=== PATIENT | male | born 1955 | race Caucasian/White ===

== ENCOUNTER 2016-04-17 12:49 | Inpatient (IN) | payer OTHER ==
[2016-04-17] MEDS ORDERED: NS 1,000 ML IV ONE ×2 (13:14→13:19)
[2016-04-17] MEDS ORDERED: chlordiazePOXIDE 25 MG CAP PO ONE (13:15)
[2016-04-17] MEDS ORDERED: LORazepam 2 MG/ML INJ IVP ONE ×2 (13:15→15:06)
--- NOTE | 2016-04-17 13:15 | EDPHY ---
H & P Time Seen by Provider: 04/17/16 13:00 HPI/ROS: CHIEF COMPLAINT: I got really drunk yesterday HISTORY OF PRESENT ILLNESS: Patient is a 61-year-old male who presents to the emergency department stating that he drinks regularly. He got drunk the night before last and drank into yesterday morning. He subsequently went to the [facility] for detox. He is now feeling unsteady when he walks. He feels as though he is having some mild confusion. He is feeling tremulous and shaky. He states he has had alcohol withdrawal before. He denies chest pain or shortness of breath. Patient has mild nausea with no vomiting or diarrhea. Patient has chronic low back pain. This is unchanged. Patient states he has fallen numerous times over the past couple of weeks. He did strike his head but did not lose consciousness. He has no headache at this time. No weakness or numbness. No focal deficits. REVIEW OF SYSTEMS: My complete review of systems is negative except as mentioned in the HPI. Past Medical/Surgical History: Includes alcoholism, chronic back pain, insomnia Past surgical history: Denies Social history: The patient smokes. He drinks alcohol regularly. He denies drugs Smoking Status: Former smoker Physical Exam: 132/91, went away, 14, 90% on room air, 36.9 GENERAL: No acute distress, alert. HEENT: Eyes normal to inspection, dry mucous membranes. Tongue wag. no visible signs of trauma. NECK: No thyromegaly, no lymphadenopathy, supple. RESPIRATORY: Clear to auscultation bilaterally, no rales, rhonchi or wheezing. Chest wall: No tenderness palpation CVS: Regular rate and rhythm, no rubs, murmurs, or gallops. ABDOMEN: Soft, nontender, nondistended, no organomegaly. BACK: Normal to inspection, no CVA tenderness. Mild bruising on the right posterior chest. No crepitus or step-off. SKIN: Normal color, no rash, warm, dry. No pallor. EXTREMITIES: No pedal edema, no calf tenderness, no Homans sign or cords, no joint swelling. NEURO/PSYCH: Alert and oriented x3, normal mood and affect, normal motor sensory exam. No obvious cranial nerve deficit. Hand tremor Constitutional: Initial Vital Signs Temperature (C) 36.9 C 04/17/16 12:57 Heart Rate 108 H 01/22/17 12:57 Respiratory Rate 14 04/17/16 12:57 Blood Pressure 132/91 H 04/17/16 12:57 O2 Sat (%) 90 L 04/17/16 12:57 O2 Delivery Mode Room Air O2 (L/minute) 2 Allergies/Adverse Reactions: No Known Allergies Allergy (Unverified 04/17/16 12:56) Home Medications: Medication Instructions Recorded Amitriptyline HCl [Elavil 50 mg 50 mg PO HS PRN 04/17/16 (*)] Atorvastatin Calcium [Lipitor 40 40 mg PO DAILY 04/17/16 mg (*)] Lisinopril [Zestril 5 mg (*)] 5 mg PO DAILY 04/17/16 Meloxicam [Mobic 15 mg] 15 mg PO DAILY 04/17/16 predniSONE 20 mg PO DAILY 04/17/16 Medical Decision Making ED Course/Re-evaluation: In the emergency department I discussed possible etiologies with the patient. Answered all his questions. IV was placed. Laboratory studies were ordered. Patient was given a L of normal saline. Given Ativan 1 mg IV for alcohol withdrawal. He was given Librium 25 mg orally for alcohol withdrawal. Because the patient reports that he has fallen multiple times and struck his head and head CT was ordered. The patient has bruising on his posterior chest and his oxygen saturation is 90%. Because of this chest x-ray was ordered. I reviewed the patient's laboratory studies. His CBC showed a normal white count. He is not anemic. However, the patient is noted to be thrombocytopenic with platelets at 52. Previous platelets were 146. Chemistry panel showed a creatinine of 0.5. Glucose 117. 1500: The patient is still is still mildly tremulous. His CIWA score is 4. Of note, I checked the patient on numerous occasions. Head CT: No acute disease noted. Please refer the dictated report by Dr. Jb Velazco. I discussed the result with the patient. On recheck he had no focal neurologic deficit. He still stated he was feeling shaky and off. 1525: The patient's brother arrived. I discussed the findings and presentation with the patient's brother. It is noted the patient does not recognize his brother. This is atypical. Based on the patient's confusion and ongoing symptoms I considered Wernicke encephalopathy. Patient was given thiamine 100 mg IV. The patient will be admitted for further observation for his confusion as well as for his abnormal laboratory studies. I discussed this with the patient and his brother. I answered all their questions. I discussed case with the hospitalist service for admission (Dr. Leslie) 1605: I discussed the chest x-ray with Dr. Velazco. He felt there is a mass/ infiltrate behind the heart. This is noted on the lateral view. Since the patient does not have significant signs of pneumonia he recommends CT imaging. I discussed the finding with Dr. Leslie from the hospitalist service. EKG shows normal sinus rhythm, normal rate, normal axis, prolonged QT. There are no ST or T-wave abnormalities. CT of the chest: Please refer the dictated report by Dr. Valeriano Sultana. The patient does have spiculated left upper lobe mass. This was relayed to Dr. Leslie. Differential Diagnosis: My differential includes but is not limited to alcohol withdrawal, dehydration, electrolyte abnormality, sugar abnormality, subarachnoid hemorrhage, subdural hematoma, epidural hematoma, skull fracture, concussion, pneumonia, rib contusion, rib fracture, hemothorax, pneumothorax Critical Care Time: Patient required 35 minutes of critical care time. This was due to his confusion, alcohol withdrawal, possible Wernicke's encephalopathy, need for frequent rechecks, further history taken from his brother, and consultation with the hospitalist service. - Data Points Laboratory Results: Laboratory Results 04/17/16 13:10 04/17/16 13:10 04/17/16 04/17/16 13:24 13:10 WBC 5.72 10^3/uL (3.80-9.50) RBC 4.10 L 10^6/uL (4.40-6.38) Hgb 14.9 g/dL (13.7-17.5) Hct 43.5 % (40.0-51.0) MCV 106.1 H fL (81.5-99.8) MCH 36.3 H pg (27.9-34.1) MCHC 34.3 g/dL (32.4-36.7) RDW 15.4 H % (11.5-15.2) Plt Count 52 L 10^3/uL (150-400) MPV 11.0 fL (8.7-11.7) Neut % (Auto) 79.7 H % (39.3-74.2) Lymph % (Auto) 12.8 L % (15.0-45.0) [place] % (Auto) 5.8 % (4.5-13.0) Eos % (Auto) 1.2 % (0.6-7.6) Baso % (Auto) 0.3 % (0.3-1.7) Nucleat RBC Rel Count 0.0 % (0.0-0.2) Absolute Neuts (auto) 4.56 10^3/uL (1.70-6.50) Absolute Lymphs (auto) 0.73 L 10^3/uL (1.00-3.00) Absolute Monos (auto) 0.33 10^3/uL (0.30-0.80) Absolute Eos (auto) 0.07 10^3/uL (0.03-0.40) Absolute Basos (auto) 0.02 10^3/uL (0.02-0.10) Absolute Nucleated RBC 0.00 10^3/uL (0-0.01) Immature Gran % 0.2 % (0.0-1.1) Immature Gran # 0.01 10^3/uL (0.00-0.10) PT 12.3 SEC (12.0-15.0) INR 0.92 (0.83-1.16) APTT 24.9 SEC (23.0-38.0) Sodium 138 mEq/L (134-144) Potassium 3.9 mEq/L (3.5-5.2) Chloride 100 mEq/L (97-110) Carbon Dioxide 29 mEq/l (22-31) Anion Gap 9 mEq/L (8-16) BUN 6 L mg/dL (7-23) Creatinine 0.5 L mg/dL (0.7-1.3) Estimated GFR > 60 Glucose 117 H mg/dL (70-100) Calcium 9.3 mg/dL (8.5-10.4) Total Bilirubin 1.2 mg/dL (0.1-1.4) Conjugated Bilirubin 0.4 mg/dL (0.0-0.5) Unconjugated Bilirubin 0.8 mg/dL (0.0-1.1) AST 121 H IU/L (17-59) ALT 108 H IU/L (21-72) Alkaline Phosphatase 135 H IU/L (38-126) Total Protein 6.3 g/dL (6.3-8.2) Albumin 3.4 L g/dL (3.5-5.0) Ethyl Alcohol < 10 mg/dL (0-10) Medications Given: Discontinued Medications Chlordiazepoxide HCl (Librium) 25 mg PO EDNOW ONE Stop: 04/17/16 13:16 Last Admin: 04/17/16 13:21 Dose: 25 mg Sodium Chloride (Ns) 1,000 mls @ 0 mls/hr IV ONCE ONE PRN Reason: Wide Open Stop: 04/17/16 13:15 Last Admin: 04/17/16 13:20 Dose: 1,000 mls Sodium Chloride (Ns) 1,000 mls @ 0 mls/hr IV ONCE ONE PRN Reason: Wide Open Stop: 04/17/16 13:20 Last Admin: 04/17/16 13:48 Dose: 1,000 mls Lorazepam (Ativan Injection) 1 mg IVP EDNOW ONE Stop: 04/17/16 13:16 Last Admin: 04/17/16 13:21 Dose: 1 mg Lorazepam (Ativan Injection) 1 mg IVP EDNOW ONE Stop: 04/17/16 15:07 Last Admin: 04/17/16 15:09 Dose: Not Given Departure - Departure Disposition: Home, Routine, Self-Care Clinical Impression: Alcohol abuse, Thrombocytopenia, Confusion, Lung mass Chest wall contusion Qualifiers: Qualifier Code: (S20.211A) Contusion of right front wall of thorax, initial encounter Alcohol withdrawal Qualifiers: Qualifier Code: (F10.230) Alcohol dependence with withdrawal, uncomplicated Condition: Good
[2016-04-17] MEDS ORDERED: LORazepam 2 MG/ML INJ ONE (13:16)
[2016-04-17 13:25] LABS: % IMMATURE GRANULYOCYTES 0.2 % (0.0-1.1); ABSOLUTE IMMATURE GRANULOCYTES 0.01 10^3/uL (0.00-0.10); ADD DIFF? NO; ADD MORPH? NO; ADD SCAN? NO; ATYPICAL LYMPHOCYTE FLAG 0 (0-99); FRAGMENT RBC FLAG 0 (0-99); HEMATOCRIT 43.5 % (40.0-51.0); HEMOGLOBIN 14.9 g/dL (13.7-17.5); LEFT SHIFT FLG 0 (0-99); LIPEMIA HEMOLYSIS FLAG 90 (0-99); MEAN CELL HEMOGLOBIN 36.3 pg (27.9-34.1); MEAN CELL HEMOGLOBIN CONCENTR. 34.3 g/dL (32.4-36.7); MEAN CELL VOLUME 106.1 fL (81.5-99.8); PLATELET CLUMPS FLAG 10 (0-99); PLATELET COUNT 52 10^3/uL (150-400); RED CELL DISTRIBUTION WIDTH 15.4 % (11.5-15.2)
[2016-04-17 13:39] LABS: ANION GAP 9 mEq/L (8-16); CALCIUM 9.3 mg/dL (8.5-10.4); CARBON DIOXIDE 29 mEq/l (22-31); CHLORIDE 100 mEq/L (97-110); CREATININE 0.5 mg/dL (0.7-1.3); ETHANOL SERUM < 10 mg/dL (0-10); GLOMERULAR FILTRATION RATE > 60; GLUCOSE 117 mg/dL (70-100); POTASSIUM 3.9 mEq/L (3.5-5.2); SODIUM 138 mEq/L (134-144)
[2016-04-17 14:05] LABS: ALBUMIN 3.4 g/dL (3.5-5.0); BILIRUBIN,TOTAL 1.2 mg/dL (0.1-1.4); BILIRUBIN-CONJUGATED 0.4 mg/dL (0.0-0.5); BILIRUBIN-UNCONJUGATED 0.8 mg/dL (0.0-1.1); TOTAL PROTEIN 6.3 g/dL (6.3-8.2)
[2016-04-17 14:38] LABS: INR 0.92 (0.83-1.16); PROTIME(PATIENT) 12.3 SEC (12.0-15.0)
[2016-04-17 14:39] LABS: APTT 24.9 SEC (23.0-38.0)
--- NOTE | 2016-04-17 15:00 | CT ---
Noncontrast Head CT Indication: Trauma.. Technique: Standard noncontrast axial CT images of the head were performed. Dose reduction techniq ues were utilized. Findings: No intracranial hemorrhage, mass effect, swelling, or extraaxial fluid collection. The ve ntricles are normal caliber and midline. The bones appear unremarkable. Right maxillary sinus is hypoplastic and filled with mucosal thickening. Impression: Negative noncontrast CT of the brain Results called to Dr. Head at 2:55 PM at the time of the interpretation.
--- NOTE | 2016-04-17 16:07 | DX ---
PA and lateral chest. April 17, 2016. Clinical History: Fall. Alcohol withdrawal. Comparison Study: None available. Findings: On the lateral radiograph, there is patchy opacity posteriorly behind the cardiac silhouett e and overlying the lower thoracic spine. This could represent a pneumonia or a mass. Recommend radio graphic follow-up and/or CT examination, as clinically appropriate. Heart size is normal. No pleural effusion.. Impression: Retrocardiac opacity on lateral radiograph, focal pneumonia versus mass. Recommend follow -up radiography or CT as clinically appropriate. Results called to Dr. Head at 4:00 PM.
[2016-04-17] MEDS ORDERED: LORazepam 2 MG/ML INJ IVP PRN (16:38)
[2016-04-17] MEDS ORDERED: THIAMINE HCL 500 MG in NS 100 ML IV ONE (16:38)
[2016-04-17] MEDS ORDERED: chlordiazePOXIDE 25 MG CAP PO PRN (16:38)
[2016-04-17] MEDS ORDERED: oxyCODONE IR 5 MG TAB PO PRN (16:40)
[2016-04-17] MEDS ORDERED: PROMETHAZINE HCL 25 MG/ML INJ IVP PRN (16:40)
[2016-04-17] MEDS ORDERED: ONDANSETRON 4 MG/2 ML VIAL IVP PRN (16:40)
[2016-04-17] MEDS ORDERED: IOPAMIDOL (ISOVUE 370) 100 ML BTL IV ONE (16:42)
--- NOTE | 2016-04-17 17:06 | CPEKG ---
Heart Rate: 82 RR Interval: 732 P-R Interval: 208 QRSD Interval: 84 QT Interval: 432 QTC Interval: 505 P [place]: 54 QRS [place]: 54 T Wave [place]: 23 EKG Severity - ABNORMAL ECG - EKG Impression: SINUS RHYTHM EKG Impression: PROLONGED QT INTERVAL Electronically Signed By: Hailey Head 17-Apr-2016 20:29:23
--- NOTE | 2016-04-17 17:37 | GHP ---
[f rep st] HISTORY AND PHYSICAL DATE OF ADMISSION: 04/17/2016 CHIEF COMPLAINT: Alcohol withdrawal. HISTORY: The patient is a 61-year-old male, known alcoholic, successfully quit drinking for 3 years, but restarted last November. He has a very supportive younger brother who talked him into going to detox yesterday morning. He brought him to the [facility] and his BAL on admission was 0.331. His last al coholic beverage was probably a couple hours prior to arrival. While at the [facility], he had escalating a lcohol withdrawal symptoms. He is now being transferred to the emergency room. He has also recently been very unsteady on his feet and having falls, with bruises all over his body. He lost his job last February due to the alcohol use. He is having increasing low back pain and re cently saw Orthopedic Surgery as an outpatient, and steroid injections are scheduled for May 04, 2016. They did do an outpatient MRI. He was given a course of oral steroids recently, which he comp leted. PAST MEDICAL HISTORY: 1. Alcoholism. 2. Low back pain, as discussed above. 3. Hyperlipidemia. 4. Hypertension. MEDICATIONS: Please see computer record for full detailed list. ALLERGIES: No known drug allergies. SOCIAL HISTORY: He smokes a half a pack per day. Heavy alcohol, as above. He describes high alcoho l, beer and vodka, daily. He lives alone. 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 REVIEW OF SYSTEMS: Complete review of systems obtained and reviewed. Systems are negative regarding constitutional, HEENT, GI, pulmonary, cardiovascular, , hematologic, musculoskeletal, endocrine an d psych, except for positives and negatives as in the HPI. FAMILY HISTORY: Positive for hypertension and diabetes, type 2. PHYSICAL EXAMINATION: GENERAL: A well-developed, well-nourished male in no acute distress. VITAL S IGNS: Temperature is 36.9, pulse 108, blood pressure 132/91, saturating 90% on room air. EYES: Nor mal conjunctiva. Pupils equal, round and react to light. ENT: Normal ears and nose. Hearing intac t. Normal lips and teeth. Oropharynx has possible oral thrush. NECK: Trachea midline. No thyrome daniel. CHEST: Normal, except for lungs clear to auscultation bilaterally. CARDIOVASCULAR SYSTEM: R egular rhythm. No murmur. No extremity edema. ABDOMEN: Soft, nontender. A mildly enlarged liver. SKIN: Is warm, dry, and intact, without rash. Petechiae in the lower extremities. MUSCULOSKELETA L: No cyanosis or clubbing. Strength is 5/5 upper and lower extremities. NEUROLOGIC: Cranial nerv es intact. Normal sensation to light touch. PSYCH ASSESSMENT: He is currently alert and oriented x 3. He is participating in giving a history. He was reportedly much more confused earlier in his ER stay. Currently, has normal mood and affect. Normal memory. LABS: White count 5.72, hematocrit 43.5, platelets 52, MCV is 106. Sodium 138, potassium 3.9, chlor eric 100, bicarb 29, BUN 6, creatinine 0.5, glucose 117. AST is 121, ALT is 108. Albumin 3.4. INR 0 .92. Alcohol level is currently 0. IMAGING: Head CT is negative. Chest x-ray shows possible mass versus infiltrate retrocardiac. This case was discussed with . He was called by Radiology regarding this chest x-ray f inding and has ordered a CT scan of the chest. MEDICAL RECORD REVIEW: He was admitted in 2012 for alcohol withdrawal. At that time, he was drinkin g 1 L of vodka per day plus additional beer. ASSESSMENT AND PLAN: 1. Alcohol withdrawal. Will place him on CIWA protocol with as needed benzodiazepines. Will prescr ani thiamine. 2. Increased liver function tests. 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 His brother requests an ultra sound to evaluate for any possible underlying cirrhosis. Will follow LFTs and check an ammonia level . INR is normal, which is reassuring regarding hepatic function. 3. Thrombocytopenia. This is likely due to direct bone marrow toxicity of the alcohol, but may also be due to some underlying hepatic dysfunction. This will be followed. 4. Back pain. He is currently undergoing outpatient evaluation with Orthopedic Surgery and has ster oid injections scheduled for May 04, 2016, which his brother is very motivated to get him to and this is part of the reason for choosing to detox from alcohol now. He recently completed a course of oral prednisone. Will avoid NSAIDs due to his severe thrombocytopenia. 5. Tobacco dependence. Will prescribe a nicotine patch. 6. Pulmonary infiltrate versus mass. CT scan ordered in the emergency room is still pending. CODE STATUS: Full. ADMISSION STATUS: Will admit to inpatient as the patient is medically complex. Anticipate greater t kearney 2 midnights will be required for stabilization next. DEEP VENOUS THROMBOSIS PROPHYLAXIS: Pharmacologic prophylaxis will be avoided due to thrombocytopeni a and he will be given SCDs. /[id number]/MODL
--- NOTE | 2016-04-17 17:51 | CT ---
CT Chest Pulmonary Angiogram With Contrast Enhancement and Multiplanar Reconstructions April 17 17 at 1655 Hours History: Chest pain, dyspnea. Comparison: None. Technique: 1.25-mm axial multidetector helical CT angiogram imaging was performed through the chest w hile 90 mL [id number]-370 were injected intravenously without complication. The images were then transfe rred to an independent workstation where multiplanar and three-dimensional reconstructions were perfo rmed by the interpreting physician and reviewed at multiple windows. Dose reduction techniques were u tilized. CT Pulmonary Angiogram Findings: No CT evidence of definite pulmonary thromboemboli. Mild atheroscle rotic aorta without aneurysm or dissection. Heart is normal in size. CT Chest Findings: Left upper lobe spiculated 1.5 cm mass suspicious for bronchogenic carcinoma, imag e 34 of series 6. Centrilobular emphysema throughout both lungs, especially bilateral upper lobes. Li near scarring in bilateral lower lobes. No definite acute pneumonia. No significant adenopathy. Pleur oparenchymal scarring in the lingula. No destructive osseous lesions. Impressions: 1. No definite pulmonary thromboemboli. 2. No aortic aneurysm or dissection. 3. Moderate centrilobular emphysema. 4. Left upper lobe 1.5 cm spiculated mass suspicious for bronchogenic carcinoma. Recommend nuclear me dicine PET scan imaging and pulmonary consult for possible biopsy. Findings and recommendations discussed with emergency department physician, Dr. Matt Head at 17 20 hours today. Final report concurs with initial preliminary interpretation. A Critical Abnormality Doc Only message has been documented for MATT HEAD in the [employer] Critical Result system on 04/17/2016 17:55, Message ID [id number].
--- NOTE | 2016-04-17 17:57 | US ---
Ultrasound of the Abdomen Limited History: Alcohol withdrawal, elevated liver function tests, cirrhosis, abdominal pain. Comparison: None. Findings Gallbladder: Gallbladder sludge. No shadowing calculi, wall thickening, or pericholecystic fluid. Com mon bile duct is 3 mm in diameter which is normal. Liver: Diffusely increased in echogenicity without definite focal lesions and measures 20 cm in lengt h. Hepatopedal flow of the main portal vein, which is patent. Renal: Right kidney measures 12 x 5 x 5 cm without hydronephrosis. Pancreas: Atrophic without peripancreatic fluid. Aorta: Visualized upper abdominal aorta demonstrates no aneurysm. Impressions: 1. Gallbladder sludge. No cholelithiasis or biliary ductal dilation. 2. Hepatomegaly and hepatic steatosis without definite focal hepatic lesions or ascites. 3. Atrophic pancreas which may be secondary to chronic pancreatitis.
[2016-04-17] MEDS: NS 1,000 ML IV SCH (18:46)
[2016-04-17] MEDS: NYSTATIN SUSP 500000 UNIT/5 ML UDCUP PO SCH (23:10)
[2016-04-18 05:21] LABS: % IMMATURE GRANULYOCYTES 0.3 % (0.0-1.1); ABSOLUTE IMMATURE GRANULOCYTES 0.02 10^3/uL (0.00-0.10); ADD DIFF? NO; ADD MORPH? NO; ADD SCAN? NO; ATYPICAL LYMPHOCYTE FLAG 10 (0-99); FRAGMENT RBC FLAG 0 (0-99); HEMATOCRIT 37.8 % (40.0-51.0); HEMOGLOBIN 12.8 g/dL (13.7-17.5); LEFT SHIFT FLG 0 (0-99); LIPEMIA HEMOLYSIS FLAG 90 (0-99); MEAN CELL HEMOGLOBIN 36.1 pg (27.9-34.1); MEAN CELL HEMOGLOBIN CONCENTR. 33.9 g/dL (32.4-36.7); MEAN CELL VOLUME 106.5 fL (81.5-99.8); PLATELET CLUMPS FLAG 0 (0-99); RED BLOOD CELL COUNT 3.55 10^6/uL (4.40-6.38); RED CELL DISTRIBUTION WIDTH 15.2 % (11.5-15.2)
[2016-04-18 05:28] LABS: PLATELET COUNT 49 10^3/uL (150-400)
[2016-04-18 05:33] LABS: ALANINE AMINOTRANSFERASE 87 IU/L (21-72); ALBUMIN 2.8 g/dL (3.5-5.0); ALKALINE PHOSPHATASE 113 IU/L (38-126); ANION GAP 4 mEq/L (8-16); ASPARTATE AMINOTRANSFERASE 105 IU/L (17-59); BILIRUBIN,TOTAL 1.2 mg/dL (0.1-1.4); BILIRUBIN-CONJUGATED 0.8 mg/dL (0.0-0.5); BILIRUBIN-UNCONJUGATED 0.4 mg/dL (0.0-1.1); CALCIUM 8.8 mg/dL (8.5-10.4); CARBON DIOXIDE 28 mEq/l (22-31); CHLORIDE 106 mEq/L (97-110); CREATININE 0.5 mg/dL (0.7-1.3); GLOMERULAR FILTRATION RATE > 60; GLUCOSE 89 mg/dL (70-100); MAGNESIUM 1.5 mg/dL (1.6-2.3); POTASSIUM 3.6 mEq/L (3.5-5.2); SODIUM 138 mEq/L (134-144); TOTAL PROTEIN 5.3 g/dL (6.3-8.2)
[2016-04-18 05:56] LABS: PLATELET ESTIMATE DECREASED (ADEQ)
[2016-04-18] MEDS: NS 1,000 ML IV SCH ×2 (06:07→16:36)
[2016-04-18] MEDS: NYSTATIN SUSP 500000 UNIT/5 ML UDCUP PO SCH ×4 (06:07→20:40)
--- NOTE | 2016-04-18 09:09 | CPEKG ---
Heart Rate: 79 RR Interval: 759 P-R Interval: 184 QRSD Interval: 86 QT Interval: 424 QTC Interval: 487 P [place]: -17 QRS [place]: 58 T Wave [place]: 9 EKG Severity - BORDERLINE ECG - EKG Impression: SINUS RHYTHM EKG Impression: VENTRICULAR PREMATURE COMPLEX EKG Impression: BORDERLINE T ABNORMALITIES, INFERIOR LEADS EKG Impression: BORDERLINE PROLONGED QT INTERVAL EKG Impression: QTc NO LONGER PROLONGED ( WAS NOTED IN PRIOR) Electronically Signed By: Augustin Anglin 18-Apr-2016 10:09:35
[2016-04-18] MEDS: THIAMINE HCL 500 MG in NS 100 ML IV SCH (10:00)
[2016-04-18] MEDS: NICOTINE 14 MG/24 HR PATCH TD SCH (10:00)
[2016-04-18] MEDS: LISINOPRIL 5 MG TAB PO SCH (10:00)
[2016-04-18] MEDS ORDERED: THIAMINE HCL 100 MG in NS 100 ML IV ONE (15:55)
--- NOTE | 2016-04-18 16:12 | HOSPPROG ---
Hospitalist Progress Note Assessment/Plan: 61-year-old male presents emergency room with his brother secondary to alcohol withdrawal. Is my 1st encounter with the patient, chart reviewed. Discussed with the nurse outreach case manager. Personally reviewed radiological studies. # alcohol withdrawal Continue CIWA protocol Continue vitamin replacement PT OT eval Discussed with case management as well as brother The patient has been sober for 3 years in the past # lung mass Spiculated per CT scan Recommend biopsy as well as PET scan Patient is not stable enough for lung biopsy at this time Will consider lung biopsy prior to disposition of patient's medical condition allows Brother and patient educated regards to situation as well as need for further follow-up and diagnosis # transaminitis Likely secondary to alcohol use Improved today per laboratory evaluation # cytopenia Secondary to chronic alcohol use Follow laboratory evaluation Appears stable # tobacco abuse Nicotine patch present Patient received tobacco cessation education # High chronic back pain Patient has outpatient follow-up No intervention currently # disposition Discussed with patient and brother Plan of care will depend on patient's hospital course Snf versus [facility] inpatient rehab Patient requires further supportive management hospital setting Subjective: Complaints of back pain that is normal. No nausea currently. No other specific complaints at this time. Objective: Vital Signs Temp Pulse Resp BP Pulse Ox 36.9 C 82 12 120/77 90 L 04/18/16 15:07 04/18/16 15:07 04/18/16 15:07 04/18/16 15:07 04/18/16 15:07 Laboratory Results 04/18/16 04:46 04/18/16 04:46 04/17/16 04/18/16 04/19/16 05:59 05:59 05:59 Intake Total 1100 201 Output Total 337 Balance 763 201 PT 12.3 SEC (12.0-15.0) 04/17/16 13:24 INR 0.92 (0.83-1.16) 04/17/16 13:24 - Physical Exam Constitutional: appears nourished, chronically ill appearing, uncomfortable Eyes: PERRL, anicteric sclera, EOMI Ears, Nose, Mouth, Throat: moist mucous membranes, hearing normal, ears appear normal Cardiovascular: regular rate and rhythym, No JVD, No edema Respiratory: no respiratory distress, no rales or rhonchi, reduced air movement Gastrointestinal: No tenderness, No ascites, No guarding Skin: warm, normal color, pressure ulcer, No rash Musculoskeletal: no joint effusions, muscular tenderness, generalized weakness Neurologic: weakness Psychiatric: not anxious, poor insight, poor judgement, poor memory, No thought process linear ICD10 Worksheet Patient Problems: Problems Problem Status Diagnosed Alcohol abuse Acute Alcohol withdrawal Acute Chest wall contusion Acute Confusion Acute Lung mass Acute Thrombocytopenia Acute
[2016-04-18] MEDS: AMITRIPTYLINE HCL 50 MG TAB PO PRN (20:40)
[2016-04-19] MEDS: NS 1,000 ML IV SCH (03:32)
[2016-04-19] MEDS: LISINOPRIL 5 MG TAB PO SCH (03:36)
[2016-04-19 05:47] LABS: % IMMATURE GRANULYOCYTES 0.4 % (0.0-1.1); ABSOLUTE IMMATURE GRANULOCYTES 0.02 10^3/uL (0.00-0.10); ADD DIFF? NO; ADD MORPH? NO; ADD SCAN? NO; ATYPICAL LYMPHOCYTE FLAG 80 (0-99); FRAGMENT RBC FLAG 0 (0-99); HEMATOCRIT 38.7 % (40.0-51.0); HEMOGLOBIN 12.8 g/dL (13.7-17.5); LEFT SHIFT FLG 20 (0-99); LIPEMIA HEMOLYSIS FLAG 80 (0-99); MEAN CELL HEMOGLOBIN 36.2 pg (27.9-34.1); MEAN CELL HEMOGLOBIN CONCENTR. 33.1 g/dL (32.4-36.7); MEAN CELL VOLUME 109.3 fL (81.5-99.8); MEAN PLATELET VOLUME 11.4 fL (8.7-11.7); PLATELET CLUMPS FLAG 0 (0-99); RED BLOOD CELL COUNT 3.54 10^6/uL (4.40-6.38); RED CELL DISTRIBUTION WIDTH 14.8 % (11.5-15.2)
[2016-04-19 05:52] LABS: PLATELET COUNT 45 10^3/uL (150-400)
[2016-04-19] MEDS: NYSTATIN SUSP 500000 UNIT/5 ML UDCUP PO SCH ×4 (06:08→19:15)
[2016-04-19 06:11] LABS: ANION GAP 4 mEq/L (8-16); CALCIUM 8.5 mg/dL (8.5-10.4); CARBON DIOXIDE 27 mEq/l (22-31); CHLORIDE 107 mEq/L (97-110); CREATININE 0.5 mg/dL (0.7-1.3); GLOMERULAR FILTRATION RATE > 60; GLUCOSE 73 mg/dL (70-100); MAGNESIUM 1.4 mg/dL (1.6-2.3); POTASSIUM 3.7 mEq/L (3.5-5.2); SODIUM 138 mEq/L (134-144)
[2016-04-19 06:24] LABS: PLATELET ESTIMATE DECREASED (ADEQ)
[2016-04-19] MEDS: NICOTINE 14 MG/24 HR PATCH TD SCH (09:02)
[2016-04-19] MEDS: THIAMINE HCL 500 MG in NS 100 ML IV SCH (09:03)
[2016-04-19] MEDS: ACETAMINOPHEN 325 MG TAB PO PRN (10:22)
[2016-04-19] MEDS ORDERED: MAGNESIUM SULF 2 GM/WATER 50 ML IV ONE (15:00)
--- NOTE | 2016-04-19 15:07 | HOSPPROG ---
Hospitalist Progress Note Assessment/Plan: 61-year-old male presents emergency room with his brother secondary to alcohol withdrawal. Discussed with hasher machine operator. # alcohol withdrawal Continue CIWA protocol Continue vitamin replacement PT OT eval Discussed with case management as well as brother The patient has been sober for 3 years in the past Symptoms improved today # lung mass Spiculated per CT scan Recommend PET scan in the outpatient setting Reviewed with pulmonology Potential biopsy in the future Brother and patient educated regards to situation as well as need for further follow-up and diagnosis # transaminitis Likely secondary to alcohol use Improved today per laboratory evaluation # thrombocytopenia Secondary to chronic alcohol use Follow laboratory evaluation Appears stable # tobacco abuse Nicotine patch present Patient received tobacco cessation education #chronic back pain Patient has outpatient follow-up No intervention currently # disposition Discussed with patient and brother Plan of care will depend on patient's hospital course Snf rehab likely in the a.m. Patient requires further supportive management hospital setting Subjective: Feeling better than yesterday. Still with significant weakness and inability to ambulate. Complains of chronic back pain. No other specific issues. Objective: Vital Signs Temp Pulse Resp BP Pulse Ox 36.6 C 79 18 157/95 H 93 04/19/16 10:57 04/19/16 10:57 04/19/16 10:57 04/19/16 10:57 04/19/16 10:57 Laboratory Results 04/19/16 04:45 04/19/16 04:45 04/18/16 04/19/16 04/20/16 05:59 05:59 05:59 Intake Total 1100 4059 346 Output Total 337 900 350 Balance 763 3159 -4 PT 12.3 SEC (12.0-15.0) 04/17/16 13:24 INR 0.92 (0.83-1.16) 04/17/16 13:24 - Physical Exam Constitutional: appears nourished, chronically ill appearing, uncomfortable Eyes: PERRL, anicteric sclera, EOMI Ears, Nose, Mouth, Throat: moist mucous membranes, hearing normal, ears appear normal Cardiovascular: regular rate and rhythym, No JVD, No edema Respiratory: no respiratory distress, no rales or rhonchi, reduced air movement Gastrointestinal: normoactive bowel sounds, No tenderness, No ascites Skin: warm, normal color, No erythema Musculoskeletal: muscular tenderness, abnormal gait, generalized weakness Psychiatric: not anxious, not encephalopathic, poor insight, poor judgement ICD10 Worksheet Patient Problems: Problems Problem Status Diagnosed Alcohol abuse Acute Alcohol withdrawal Acute Chest wall contusion Acute Confusion Acute Lung mass Acute Thrombocytopenia Acute
[2016-04-19] MEDS: AMITRIPTYLINE HCL 50 MG TAB PO PRN (19:15)
[2016-04-20] MEDS: ACETAMINOPHEN 325 MG TAB PO PRN (00:51)
[2016-04-20 03:09] VITALS: O2SAT 92
[2016-04-20 04:53] LABS: % IMMATURE GRANULYOCYTES 0.6 % (0.0-1.1); ABSOLUTE IMMATURE GRANULOCYTES 0.02 10^3/uL (0.00-0.10); ADD DIFF? NO; ADD MORPH? NO; ADD SCAN? NO; ATYPICAL LYMPHOCYTE FLAG 30 (0-99); FRAGMENT RBC FLAG 0 (0-99); HEMATOCRIT 38.5 % (40.0-51.0); HEMOGLOBIN 13.1 g/dL (13.7-17.5); LEFT SHIFT FLG 0 (0-99); LIPEMIA HEMOLYSIS FLAG 90 (0-99); MEAN CELL HEMOGLOBIN 36.4 pg (27.9-34.1); MEAN CELL VOLUME 106.9 fL (81.5-99.8); PLATELET CLUMPS FLAG 10 (0-99); PLATELET COUNT 65 10^3/uL (150-400); RED CELL DISTRIBUTION WIDTH 14.8 % (11.5-15.2)
[2016-04-20 05:06] LABS: ANION GAP 4 mEq/L (8-16); CALCIUM 8.9 mg/dL (8.5-10.4); CARBON DIOXIDE 28 mEq/l (22-31); CHLORIDE 109 mEq/L (97-110); CREATININE 0.6 mg/dL (0.7-1.3); GLOMERULAR FILTRATION RATE > 60; GLUCOSE 149 mg/dL (70-100); MAGNESIUM 1.7 mg/dL (1.6-2.3); POTASSIUM 3.9 mEq/L (3.5-5.2); SODIUM 141 mEq/L (134-144)
[2016-04-20] MEDS: LISINOPRIL 5 MG TAB PO SCH (08:26)
[2016-04-20] MEDS: NICOTINE 14 MG/24 HR PATCH TD SCH (08:26)
[2016-04-20] MEDS: NYSTATIN SUSP 500000 UNIT/5 ML UDCUP PO SCH ×2 (08:26→12:12)
[2016-04-20] MEDS ORDERED: THIAMINE HCL 100 MG TAB PO SCH (09:00)
[2016-04-20 09:10] VITALS: BP 158/69; PULSE 66; RESP 16; TEMP 98.2
--- NOTE | 2016-04-20 10:02 | PDIAF ---
- Diagnosis Diagnosis: ETOh Code Status: Full Code - Medication Management Discharge Medications: Medications to Continue on Transfer Atorvastatin Calcium [Lipitor 40 mg (*)] 40 mg PO DAILY 04/17/16 [Last Taken Unknown] Lisinopril [Zestril 5 mg (*)] 5 mg PO DAILY 04/17/16 [Last Taken Unknown] Meloxicam [Mobic 15 mg] 15 mg PO DAILY 04/17/16 [Last Taken Unknown] Acetaminophen [Tylenol 325mg (*)] 650 mg PO Q4 PRN #0 tab 04/20/16 [Last Taken Unknown] Amitriptyline HCl [Elavil 50 mg (*)] 50 mg PO HS PRN #0 tab 04/20/16 [Last Taken Unknown] Nicotine [Nicoderm Cq 14 mg (*)] 14 mg TD DAILY #0 patch 04/20/16 [Last Taken Unknown] Thiamine HCl [Vitamin B-1] 100 mg PO DAILY #0 tab 04/20/16 [Last Taken Unknown] Discharge Medications: Refer to the Discharge Home Medication list for PRN reason. PICC Care - Routine: N/A - Orders Services needed: Registered Nurse, Physical Therapy, Occupational Therapy - Follow Up Care Current Providers and Referrals: [facility] [Outside] - As per Instructions
--- NOTE | 2016-04-20 15:32 | GDS ---
[f rep st] DISCHARGE SUMMARY DISCHARGE DIAGNOSES: 1. Alcohol withdrawal. 2. Spiculated lung mass. 3. Transaminitis. 4. Thrombocytopenia. 5. Chronic tobacco use. 6. Chronic back pain. STUDIES AND PROCEDURES DONE: CT angio of the chest noting spiculated lung mass. PHYSICAL EXAM: GENERAL: The patient is alert. VITAL SIGNS: Afebrile at 36.8, pulse is 66, respira tory rate 16, blood pressure is 158/69. He is saturating 92% on room air. I have seen and evaluated the patient on the day of discharge. HOSPITAL COURSE: 1. The patient is a 61-year-old male, who was brought to the emergency room after being found down. He was evaluated and diagnosed with acute alcohol withdrawal. During this hospitalization, he was p laced on the CIWA protocol and treated with benzodiazepine. His withdrawal has significantly improve d. He is able to ambulate independently, and will follow up at longterm rehabilitation for in creased strength and therapies. 2. Transaminitis. We have continued to monitor the patient's liver function tests during this hospi talization. His function is improving. Ultrasound is stable without noted cirrhosis or complications . 3. Thrombocytopenia, likely secondary to the patient's significant alcohol use. This again will be followed in the outpatient setting. 4. Chronic back pain. The patient is scheduled for a steroid injection on May 04, 2016. Will a void NSAIDs or other medications that may interfere with this planned injection. 5. Spiculated lung mass. During this hospitalization, the patient had a CT angio of his chest notin g a spiculated lung mass. It is recommended that he have a PET scan in the outpatient setting. I stauffer ve discussed with his primary care provider's office. They will order the PET scan for him in the wi xt 1-2 weeks to further evaluate this mass. 6. Tobacco dependency. Patch has been placed. The patient is receiving tobacco cessation education . DISPOSITION: The patient will be discharged to longterm facility rehabilitation for further s trengthening and management. After that, he will find an alcohol detox with the assistance of his br other that he is in agreement with. The patient is very eager to become sober and abstain from any further alcohol. DISCHARGE MEDICATIONS: Please refer to EMR form. I have spent greater than 35 minutes in the care, coordination, and management of this patient's disp osition. /[id number]/MODL
== END 2016-04-20 13:32 | DRG 897 ==
LOC: EDUNIT# → EDBD → OBSVTOIN 16:37 → F3E 18:11
PROVIDERS: ADMIT Internal Medicine; ATTEND Hospitalist
PROC: HZ2ZZZZ Detoxification Services for Substance Abuse Treatment (ICD-10-PCS; principal; 2016-04-17)
DX: F10.230 Alcohol dependence with withdrawal, uncomplicated (principal); K70.10 Alcoholic hepatitis without ascites; D69.59 Other secondary thrombocytopenia; M54.5 Low back pain; R91.8 Other nonspecific abnormal finding of lung field; F17.210 Nicotine dependence, cigarettes, uncomplicated; E78.5 Hyperlipidemia, unspecified; I10 Essential (primary) hypertension
CPT/HCPCS: 82607-90; 96374; 97116-GP; 97161-GP; 97166-GO; 97530-GO; G0480; J3411; Q9967

== ENCOUNTER 2016-05-09 09:58 | Day surgery (SDC) | payer OTHER ==
[2016-05-09] MEDS ORDERED: NALOXONE HCL 0.4 MG/ML INJ ONE (10:24)
[2016-05-09] MEDS ORDERED: FLUMAZENIL 0.5 MG/5 ML MDV IVP ONE (10:24)
[2016-05-09] MEDS ORDERED: MIDAZOLAM 2 MG/2 ML VIAL ONE (10:25)
[2016-05-09] MEDS ORDERED: fentaNYL 100 MCG/2 ML INJ ONE (10:25)
[2016-05-09] MEDS ORDERED: NS 1,000 ML IV SCH (11:30)
--- NOTE | 2016-05-09 13:02 | DX ---
Upright AP chest - May 09, 2016 at 1233 hours History: Immediate post CT-guided biopsy of mass of left upper lobe. Small pneumothorax on CT. Blood patch was performed, with 20 mL. 40-year smoker, with emphysema. Findings: Left apical pneumothorax is small. No pleural effusion. Poorly defined abnormal apical opac ity on the left side appears larger than April 17, 2016, probably because of the blood patch proced ure. Right lung is clear. Heart size is normal. Impression: Small left apical pneumothorax. Plan: Follow up chest radiograph in 2 hours.
--- NOTE | 2016-05-09 14:49 | CT ---
CT-guided core needle biopsy of mass of left upper lobe History: Incidental discovery of small mass in the apicoposterior segment of left upper lobe on a CT angiogram of the chest that was performed for chest pain on April 17, 2016. Consent: Risks and benefits of the procedure were discussed in detail, and informed consent was obta ined. The patient accepted risks of lack of diagnostic sample, internal bleeding, hemoptysis, pneumo thorax requiring chest tube and admission to the hospital. Medications: Intravenous conscious sedation and analgesia were given under my supervision. Vital sign s, pulse oximetry, and electrocardiogram were monitored. The patient received 1 milligrams of Versed and 50 micrograms of fentanyl intravenously. Start time: 1203. End time: 1225. Technique: With the patient prone, adhesive radiopaque grid was placed over the upper left hemithorax , posteriorly. Multidetector helical CT images were obtained using dose reduction technology. The ski n site was selected and labeled. The skin was prepped and draped in sterile fashion. 1% Xylocaine was used for local anesthetic. 19-gauge Guide needle was inserted into soft tissues, and CT images were obtained. The tip of the needle was repositioned and additional CT images were taken. The needle was advanced into the lung, and multiple coaxial 20-gauge cores were obtained and rinsed off into sterile saline. Most of the attempted cores were scanty, however, and additional CT images were obtained. Th e tip of the needle was repositioned on 2 attempts to better center the tip of the needle in the targ et lesion, followed by CT images. Then, multiple additional 20-gauge cores were obtained. 20 mL of ve nous blood were injected into the Guide needle, and the needle was removed. Sterile dressing was appl ied. The patient tolerated the procedure well and was taken to Diagnostic Radiology for chest radiogr aph. Findings: Target lesion measures 1.2 cm AP x 1.0 cm transverse. Sampling of the lesion is difficult, and piercing the pleura is difficult because of small pneumothorax after the first needle placement. Impression: 1. Challenging CT-guided core needle biopsy of 1.2 x 1.0 cm mass of apicoposterior segment of the lef t upper lobe. 2. Blood patch of biopsy tract. 3. Small left pneumothorax. - - - - - - - - - - - - - - - - - - - - - - - - - - - - - (PQRS measures: Current medications were listed in the medical record, including all known prescripti ons, [id number] medications, herbal medications, and nutritional supplements. Tobacco use: The patient quit 4 weeks ago. Prophylactic antibiotic:Unnecessary. VTE prophylaxis:Unnecessary.)
--- NOTE | 2016-05-09 16:23 | DX ---
PA chest - May 09, 2016, 1430 hours History: 2 hours post core needle biopsy of mass of left upper lobe. Follow up small left pneumothor ax. Findings: Small left pneumothorax appears larger than 1233 hours. Some of this is attributed to bett er upright positioning. No mediastinal shift. Right lung is normally aerated. Heart size is normal. Impression: Small left pneumothorax. Clinical note: Patient has minimal symptoms at this time, and he desires to go home. We discussed sym ptoms that should prompt return to the emergency room tonight. I gave him my contact information.
== END 2016-05-09 16:50 | disposition home or self-care (01) ==
LOC: FIMAGING 09:58
PROVIDERS: ATTEND Internal Medicine Hematology & Oncology
PROC: 3E0L3GC Introduction of Other Therapeutic Substance into Pleural Cavity, Percutaneous Approach (ICD-10-PCS; 2016-05-09)
PROC: 0BBG3ZX Excision of Left Upper Lung Lobe, Percutaneous Approach, Diagnostic (ICD-10-PCS; principal; 2016-05-09 12:48)
DX: C34.90 Malignant neoplasm of unspecified part of unspecified bronchus or lung (principal); J95.811 Postprocedural pneumothorax; J43.9 Emphysema, unspecified; Z87.891 Personal history of nicotine dependence; G89.29 Other chronic pain; D53.9 Nutritional anemia, unspecified
CPT/HCPCS: J2250; J2310; J3010

== ENCOUNTER → 2016-05-10 | Outpatient (CLI) | payer OTHER | LOC: FIMAGING 08:22 | PROVIDERS: ATTEND Radiology Diagnostic Radiology | DX: J93.9 Pneumothorax, unspecified (principal) ==

== ENCOUNTER 2016-06-03 10:12 | Inpatient (IN) | payer OTHER ==
[~2016-06-03 10:12] MED LIST: BUPIVACAINE 0.5% 30 ML SDV ONE
[2016-06-03] MEDS ORDERED: ceFAZolin 2 GM/DEXTROSE 100 ML IV ONE (11:00)
[2016-06-03] MEDS ORDERED: MIDAZOLAM 2 MG/2 ML VIAL ONE (11:58)
[2016-06-03] MEDS ORDERED: fentaNYL 100 MCG/2 ML INJ ONE ×2 (11:59→17:37)
[2016-06-03] MEDS ORDERED: HYDROmorphONE/DILAUDID 2 MG/ML INJ ONE ×2 (11:59→17:37)
[2016-06-03] MEDS ORDERED: PROPOFOL 200 MG/20 ML VIAL ONE ×3 (11:59→15:30)
[2016-06-03] MEDS ORDERED: ROCURONIUM 50 MG/5 ML VIAL ONE (12:00)
[2016-06-03] MEDS ORDERED: LIDOCAINE 2% 5 ML SDV ONE (12:00)
[2016-06-03] MEDS ORDERED: DEXAMETHASONE 4 MG/ML VIAL ONE (12:00)
[2016-06-03] MEDS ORDERED: PHENYLEPHRINE HCL 100 MCG/ML SYR ONE (12:29)
[2016-06-03] MEDS ORDERED: PROPOFOL/EMULSION 500 MG/50 ML BOTTLE IV ONE (13:31)
[2016-06-03] MEDS ORDERED: ONDANSETRON DISINTEGRATING 4 MG TAB PO PRN (16:41)
[2016-06-03] MEDS ORDERED: ACETAMINOPHEN 325 MG TAB PO PRN (16:41)
[2016-06-03] MEDS ORDERED: diphenhydrAMINE 25 MG CAP PO PRN (16:41)
[2016-06-03] MEDS ORDERED: ONDANSETRON 4 MG/2 ML VIAL IVP PRN (16:41)
[2016-06-03] MEDS ORDERED: NALOXONE HCL 0.4 MG/ML INJ IVP PRN (16:42)
[2016-06-03] MEDS ORDERED: HYDROmorphONE/DILAUDID 6 MG/30 ML PCA IV PRN (16:42)
[2016-06-03] MEDS ORDERED: NS 1,000 ML IV SCH (16:45)
--- NOTE | 2016-06-03 16:45 | POSTOPPROG ---
Post Op Note Date of Operation: 06/03/16 Surgeon: Kadie Pearce Inspector Eyeglass Frames: gomez Anesthesiologist: tayla Anesthesia: GET(General Endotracheal) Pre-op Diagnosis: PAYAM neuroendocrine tumor Post-op Diagnosis: same Indication: 61yo m c PAYAM neuroendocrine tumor found on CT, asymptomatic Procedure: mediastinoscopy, VATS L upper lobectomy Findings: mediastinal LNs negative Inf/Abcess present in the surg proc area at time of surgery?: No Depth: Organ Space EBL: 100-500 Complications: none immediately postoperatively Drains: Other (chest tube) Specimen(s): mediastinal lymph nodes left upper lobe
[2016-06-03] MEDS ORDERED: SKIN ADHESIVE (DERMABOND) 1 EACH TP ONE (16:57)
[2016-06-03] MEDS: ceFAZolin 2 GM/DEXTROSE 100 ML IV SCH (22:24)
[2016-06-03] MEDS: ATORVASTATIN CALCIUM 40 MG TAB PO SCH (22:24)
[2016-06-04] MEDS: ceFAZolin 2 GM/DEXTROSE 100 ML IV SCH ×2 (06:20→14:16)
[2016-06-04 06:39] LABS: % IMMATURE GRANULYOCYTES 0.4 % (0.0-1.1); ABSOLUTE IMMATURE GRANULOCYTES 0.04 10^3/uL (0.00-0.10); ADD DIFF? NO; ADD MORPH? NO; ADD SCAN? NO; ATYPICAL LYMPHOCYTE FLAG 10 (0-99); FRAGMENT RBC FLAG 0 (0-99); HEMATOCRIT 37.9 % (40.0-51.0); HEMOGLOBIN 12.7 g/dL (13.7-17.5); LEFT SHIFT FLG 0 (0-99); LIPEMIA HEMOLYSIS FLAG 80 (0-99); MEAN CELL HEMOGLOBIN CONCENTR. 33.5 g/dL (32.4-36.7); MEAN CELL VOLUME 104.4 fL (81.5-99.8); MEAN PLATELET VOLUME 9.5 fL (8.7-11.7); PLATELET CLUMPS FLAG 0 (0-99); PLATELET COUNT 296 10^3/uL (150-400); RED BLOOD CELL COUNT 3.63 10^6/uL (4.40-6.38); RED CELL DISTRIBUTION WIDTH 13.4 % (11.5-15.2)
[2016-06-04 07:08] LABS: ANION GAP 6 mEq/L (8-16); CALCIUM 8.4 mg/dL (8.5-10.4); CARBON DIOXIDE 27 mEq/l (22-31); CHLORIDE 105 mEq/L (97-110); CREATININE 0.5 mg/dL (0.7-1.3); GLOMERULAR FILTRATION RATE > 60; GLUCOSE 127 mg/dL (70-100); POTASSIUM 4.3 mEq/L (3.5-5.2); SODIUM 138 mEq/L (134-144)
--- NOTE | 2016-06-04 07:48 | GOP ---
[f rep st] OPERATIVE REPORT DATE OF OPERATION: 06/03/2016 SURGEON: Kadie Pearce MD RN STAFFING: Fran Franks MD, who was requested by my presence for timely completion of the case and technical expertise. ANESTHESIA: General. ANESTHESIOLOGIST: Nasir Helms MD PREOPERATIVE DIAGNOSIS: Left upper lobe neuroendocrine cancer. POSTOPERATIVE DIAGNOSIS: Left upper lobe neuroendocrine cancer. PROCEDURE PERFORMED: 1. Mediastinoscopy. 2. Video-assisted thoracoscopic surgery with left upper lobectomy and chest tube placement. FINDINGS: Small tumor in the right upper lobe, negative mediastinal lymph nodes. SPECIMENS: Lymph nodes from the mediastinum, left upper lobectomy. ESTIMATED BLOOD LOSS: 100 cc. INDICATIONS: The patient is a 61-year-old man who was diagnosed with a neuroendocrine tumor of the left upper lobe. DESCRIPTION OF PROCEDURE: The patient was brought into the operating room, placed supine on the table, and general anesthesia was administered. Initially , he was placed in the supine position. His neck was prepped and draped in the usual sterile fashion. I made the incision approximately 1 fingerbreadth above the sternal notch. I dissected down through the subcutaneous tissues, I divided the platysma. I encountered the strap muscles. I divided these vertically. I continued my dissection until I was on top of the trachea, I finger dissected this area, and I could palpate the innominate vein. I then placed the mediastinoscope and was able to dissect lymph nodes. Initially, the tissue looked like fat and ultimately I found a dark lymph node. These were sent to Pathology for frozen. Hemostasis was achieved. I closed the strap muscles with 3-0 Vicryl, I closed the platysma with 3-0 Vicryl. I closed skin with 3-0 Vicryl, followed by 4-0 Monocryl. Mastisol, Steri-Strips, sterile dressing were applied. Pathology called and the lymph nodes were negative. The patient was then placed in the decubitus position with the left side up. All bony prominences were padded. The bed was broken, and the beanbag was insufflated. His back was prepped from spine to nipple, axilla to iliac crest. I made a small incision in the anterior axillary line. I inserted the trocar to approximately the 5th intercostal space. Additional maneuvers needed to be performed to desufflate the lung. Once this occurred, I then was able to make a utility incision beneath the axilla in the area for a camera at approximately the 8th intercostal space, and 2 posterior incisions. I initially performed dissection at the hilum, identifying the pulmonary vein leading to the left upper lobe, as well as branches of the pulmonary artery and the main pulmonary artery. I then flipped the lung and identified another segment of artery posteriorly. I dissected this free and then transected it with a MANE vascular load stapler. I continued to divide some of the loose attachments, and then returned back to the hilum and, after I was comfortable that these were the structures only going to the left upper lobe, I then divided the superior segment of the pulmonary vein, followed by 2 additional segments of the pulmonary artery leading to the left upper lobe. Finally, I divided another segment of the pulmonary vein, all with a MANE vascular load stapler. At this point, the bronchus was the only structure remaining. I carefully dissected this and then placed a MANE 45 blue load around the bronchus. I clamped it shut , then I had Anesthesia insufflate the lung. The lower lobe insufflated easily. The upper lobe did still have some additional air movement in it, but it was small . I transected the main segment of the bronchus. I looked at the area again, and there was a small bronchus leading to the left upper lobe and then encircled this, and then just divided it with a MANE 45 stapler. The fissure was divided with the MANE 45 blue load. Hemostasis was achieved. I placed a chest tube 28-Icelandic, directed apically, and had Anesthesia insufflate the lower lung, which insufflated easily. In addition, no air leaks were noted. The chest tube was sutured in place with 0 Vicryl. The chest tube was connected to a Pleur-evac. I closed the utility incision with 2 layers of 0 Vicryl. All skin was closed with 4-0 Monocryl. Dermabond applied. He was awakened in the operating room, extubated, and transferred to PACU. His postoperative chest x-ray showed no evidence of pneumothorax. /[id number]/MODL MTDD
--- NOTE | 2016-06-04 07:49 | SOAPPROG ---
SOAP Progress Note Assessment/Plan: Assessment: comfortable/ minimal air leak and minimal drainage/ afebrile/ uo ok/ hct stable hoarse/ bs equal/ wounds ok imp : recurrent nerve injury either in the chest or 2/2 mediastinoscopy Plan:continue orders/ medsurg 06/04/16 07:46 Objective: Vital Signs Temp Pulse Resp BP Pulse Ox 36.3 C 87 14 117/64 100 06/04/16 02:00 06/04/16 06:00 06/04/16 06:00 06/04/16 06:00 06/04/16 06:00 Laboratory Results 06/04/16 06:25 06/04/16 06:25 06/03/16 06/04/16 06/05/16 05:59 05:59 06:59 Intake Total 3568 Output Total 2355 Balance 1213 ICD10 Worksheet Patient Problems: Problems Problem Status Onset Alcohol abuse Acute Alcohol withdrawal Acute Chest wall contusion Acute Confusion Acute Lung mass Acute Thrombocytopenia Acute
[2016-06-04] MEDS: HYDROCODONE/APAP 5/325 TAB PO PRN ×3 (08:22→22:01)
[2016-06-04] MEDS: LIDOCAINE 5% 1 EA PATCH TD SCH (08:23)
[2016-06-04] MEDS: ENOXAPARIN 40 MG/0.4 ML SYR SC SCH (08:23)
[2016-06-04] MEDS: ATORVASTATIN CALCIUM 40 MG TAB PO SCH (20:04)
[2016-06-04] MEDS: PATCH REMOVAL 1 EA PATCH TD SCH (22:03)
[2016-06-05] MEDS: HYDROCODONE/APAP 5/325 TAB PO PRN ×4 (03:18→21:59)
[2016-06-05] MEDS: ENOXAPARIN 40 MG/0.4 ML SYR SC SCH (07:50)
[2016-06-05] MEDS: LIDOCAINE 5% 1 EA PATCH TD SCH (08:01)
[2016-06-05] MEDS ORDERED: POLYETHYLENE GLYCOL 3350 17 GM PKT PO PRN (09:30)
[2016-06-05] MEDS ORDERED: LACTULOSE 20 GM/30 ML UDCUP PO PRN (09:30)
[2016-06-05] MEDS ORDERED: BISACODYL 10 MG SUPP PR PRN (09:30)
[2016-06-05] MEDS ORDERED: MAGNESIUM HYDROXIDE 30 ML UDCUP PO PRN (09:30)
--- NOTE | 2016-06-05 09:34 | SOAPPROG ---
SOAP Progress Note Assessment/Plan: Assessment/Plan: 61 Y M s/p mediastinoscopy, VATS and lobectomy, POD#2. Pain controlled. Chest tube to suction while in room. Ok to take off suction for walking. Bowel protocol. Pathology pending. S: No complaints. No SOB. No CP. No fever/chills. O: gen: alert nad heent: ncat, mmm chest: clear B, tiny air leak cor: rrr abd: soft wounds: well dressed 06/05/16 09:31 Objective: Vital Signs Temp Pulse Resp BP Pulse Ox 36.8 C 83 16 106/71 97 06/05/16 08:10 06/05/16 08:10 06/05/16 08:10 06/05/16 08:10 06/05/16 08:10 Laboratory Results 06/04/16 06:25 06/04/16 06:25 06/04/16 06/05/16 06/06/16 04:59 05:59 05:59 Intake Total Output Total Balance ICD10 Worksheet Patient Problems: Problems Problem Status Onset Alcohol abuse Acute Alcohol withdrawal Acute Chest wall contusion Acute Confusion Acute Lung mass Acute Thrombocytopenia Acute
[2016-06-05] MEDS: ATORVASTATIN CALCIUM 40 MG TAB PO SCH (21:04)
[2016-06-05] MEDS: SENNOSIDES/DOCUSATE SODIUM TAB PO SCH (21:04)
[2016-06-05] MEDS: HYDROmorphONE/DILAUDID 1 MG/ML SYR IVP PRN (21:05)
[2016-06-05] MEDS: PATCH REMOVAL 1 EA PATCH TD SCH (21:58)
[2016-06-06] MEDS: HYDROCODONE/APAP 5/325 TAB PO PRN ×4 (04:01→19:34)
[2016-06-06] MEDS: SENNOSIDES/DOCUSATE SODIUM TAB PO SCH ×2 (08:36→21:22)
[2016-06-06] MEDS: ENOXAPARIN 40 MG/0.4 ML SYR SC SCH (08:37)
[2016-06-06] MEDS: LIDOCAINE 5% 1 EA PATCH TD SCH (08:37)
--- NOTE | 2016-06-06 16:18 | SOAPPROG ---
SOAP Progress Note Assessment/Plan: Assessment: POD#3 s/p mediastinoscopy and VATS left upper lobectomy for neuroendocrine tumor Path pending Pain at chest tube site - lidoderm patch and PO Voiding spont Chest tube with tiny air leak - to water seal today and CXR in am Encouraged IS and ambulation Dispo: continue inpatient. continue home meds S: C/o pain at chest tube site. Walking within room O: sitting at edge of bed, comfortable, NAD No increased WOB, decrease L side CT with minimal serosang output. Tiny air leak with cough Incisions CDI RRR Dressing intact Objective: Vital Signs Temp Pulse Resp BP Pulse Ox 36.8 C 104 H 18 127/92 H 97 06/06/16 11:46 06/06/16 11:46 06/06/16 11:46 06/06/16 11:46 06/06/16 11:46 Laboratory Results 06/04/16 06:25 06/04/16 06:25 06/05/16 06/06/16 06/07/16 05:59 05:59 05:59 Intake Total Output Total 2755 Balance -2755 ICD10 Worksheet Patient Problems: Problems Problem Status Onset Alcohol abuse Acute Alcohol withdrawal Acute Chest wall contusion Acute Confusion Acute Lung mass Acute Thrombocytopenia Acute
[2016-06-06] MEDS: HYDROmorphONE/DILAUDID 1 MG/ML SYR IVP PRN (19:42)
[2016-06-06] MEDS: AMITRIPTYLINE HCL 100 MG TAB PO PRN (21:22)
[2016-06-06] MEDS: ATORVASTATIN CALCIUM 40 MG TAB PO SCH (21:22)
[2016-06-06] MEDS: PATCH REMOVAL 1 EA PATCH TD SCH (21:26)
[2016-06-07] MEDS: HYDROCODONE/APAP 5/325 TAB PO PRN ×2 (02:02→08:27)
[2016-06-07] MEDS: LIDOCAINE 5% 1 EA PATCH TD SCH (08:25)
[2016-06-07] MEDS: ENOXAPARIN 40 MG/0.4 ML SYR SC SCH (08:25)
[2016-06-07] MEDS: LISINOPRIL 5 MG TAB PO SCH (08:26)
[2016-06-07] MEDS: SENNOSIDES/DOCUSATE SODIUM TAB PO SCH ×2 (08:26→21:06)
--- NOTE | 2016-06-07 10:20 | SOAPPROG ---
SOAP Progress Note Assessment/Plan: Assessment: POD#4 s/p mediastinoscopy and VATS left upper lobectomy for neuroendocrine tumor Path pending Pain controlled with PO and lidoderm Voiding spont Chest tube out this morning, CXR in 4 hours Continue IS and ambulation Dispo: continue inpatient. continue home meds S: C/o pain at chest tube site. Walking around unit O: sitting at edge of bed, comfortable, NAD Decreased breath sounds L side, R base CT with minimal serosang output. No air leak. Removed without difficulty. Incisions CDI RRR Objective: Vital Signs Temp Pulse Resp BP Pulse Ox 36.5 C 109 H 20 124/88 H 94 06/07/16 07:22 06/07/16 07:22 06/07/16 07:22 06/07/16 08:26 06/07/16 07:22 Laboratory Results 06/04/16 06:25 06/04/16 06:25 06/06/16 06/07/16 06/08/16 05:59 05:59 05:59 Intake Total 850 Output Total 2755 1180 60 Balance -2755 -330 -60 ICD10 Worksheet Patient Problems: Problems Problem Status Onset Alcohol abuse Acute Alcohol withdrawal Acute Chest wall contusion Acute Confusion Acute Lung mass Acute Thrombocytopenia Acute
[2016-06-07] MEDS: ATORVASTATIN CALCIUM 40 MG TAB PO SCH (21:04)
[2016-06-07] MEDS: AMITRIPTYLINE HCL 100 MG TAB PO PRN (21:04)
[2016-06-07] MEDS: PATCH REMOVAL 1 EA PATCH TD SCH (21:05)
--- NOTE | 2016-06-08 09:39 | SOAPPROG ---
SOAP Progress Note Assessment/Plan: Assessment: POD#5 s/p mediastinoscopy and VATS left upper lobectomy for neuroendocrine tumor Path pending Pain controlled with PO and lidoderm Voiding spont Chest tube out, CXR this am with minimal ptx Continue IS and ambulation Keep chest tube dressing intact x 48 hours - do not get wet Dispo: likely home later today or tomorrow morning. S: reports increased SOB and pain with deep breathing. one episode of desat overnight O: sitting up in bed, comfortable, NAD CTAB Incisions CDI, dressing changed RRR Objective: Vital Signs Temp Pulse Resp BP Pulse Ox 36.8 C 106 H 20 127/64 H 95 06/08/16 07:54 06/08/16 07:54 06/08/16 07:54 06/08/16 07:54 06/08/16 07:54 Laboratory Results 06/04/16 06:25 06/04/16 06:25 06/07/16 06/08/16 06/09/16 05:59 05:59 05:59 Intake Total 850 1350 Output Total 1180 460 Balance -330 890 ICD10 Worksheet Patient Problems: Problems Problem Status Onset Alcohol abuse Acute Alcohol withdrawal Acute Chest wall contusion Acute Confusion Acute Lung mass Acute Thrombocytopenia Acute
[2016-06-08] MEDS: LIDOCAINE 5% 1 EA PATCH TD SCH (10:39)
[2016-06-08] MEDS: ENOXAPARIN 40 MG/0.4 ML SYR SC SCH (10:42)
[2016-06-08] MEDS: SENNOSIDES/DOCUSATE SODIUM TAB PO SCH ×2 (10:43→21:32)
[2016-06-08] MEDS: LISINOPRIL 5 MG TAB PO SCH (10:43)
[2016-06-08] MEDS: AMITRIPTYLINE HCL 100 MG TAB PO PRN (21:30)
[2016-06-08] MEDS: ATORVASTATIN CALCIUM 40 MG TAB PO SCH (21:30)
[2016-06-08] MEDS: PATCH REMOVAL 1 EA PATCH TD SCH (21:32)
[2016-06-09 04:38] VITALS: TEMP 98.4
[2016-06-09 07:29] VITALS: RESP 16
[2016-06-09] MEDS: ENOXAPARIN 40 MG/0.4 ML SYR SC SCH (08:21)
[2016-06-09] MEDS: LISINOPRIL 5 MG TAB PO SCH (08:22)
[2016-06-09] MEDS: LIDOCAINE 5% 1 EA PATCH TD SCH (08:23)
[2016-06-09] MEDS: SENNOSIDES/DOCUSATE SODIUM TAB PO SCH (08:23)
[2016-06-09 11:39] VITALS: BP 106/90; PULSE 108; O2SAT 92
--- NOTE | 2016-06-09 19:26 | SOAPPROG ---
SOAP Progress Note Assessment/Plan: Assessment: s/p PAYAM for carcinoma and neuroendocrine [id number] CXR improved DC home S: Feeling improved. No narcotics since chest tube is out O: Sitting up appears well Neck cdi Chest incisions cdi Lungs clear bilaterally, decreased LLL Plan: 06/09/16 19:24 Objective: Vital Signs Temp Pulse Resp BP Pulse Ox 36.9 C 108 H 16 106/90 H 92 06/09/16 11:39 06/09/16 11:39 06/09/16 11:39 06/09/16 11:39 06/09/16 11:39 Laboratory Results 06/04/16 06:25 06/04/16 06:25 06/08/16 06/09/16 06/10/16 05:59 05:59 05:59 Intake Total 1350 1000 480 Output Total 460 Balance 890 1000 480 ICD10 Worksheet Patient Problems: Problems Problem Status Onset Alcohol abuse Acute Alcohol withdrawal Acute Chest wall contusion Acute Confusion Acute Lung mass Acute Thrombocytopenia Acute
== END 2016-06-09 15:06 | disposition home or self-care (01) | DRG 165 ==
LOC: F3E 10:12 → F2N 18:33 → F3E 06-04 13:10
PROVIDERS: ADMIT Surgery; ATTEND Surgery
PROC: 0BTG4ZZ Resection of Left Upper Lung Lobe, Percutaneous Endoscopic Approach (ICD-10-PCS; principal; 2016-06-03 11:45)
PROC: 07B74ZX Excision of Thorax Lymphatic, Percutaneous Endoscopic Approach, Diagnostic (ICD-10-PCS; principal; 2016-06-03 11:45)
DX: C34.12 Malignant neoplasm of upper lobe, left bronchus or lung (principal); J44.9 Chronic obstructive pulmonary disease, unspecified; Z87.891 Personal history of nicotine dependence; M54.5 Low back pain; I10 Essential (primary) hypertension; F10.21 Alcohol dependence, in remission
CPT/HCPCS: J0690; J1100; J1170; J1650; J2250; J2370; J2704; J3010

== ENCOUNTER → 2016-06-16 | Outpatient (CLI) | payer OTHER | LOC: FIMAGING 13:41 | PROVIDERS: ATTEND Surgery | DX: Z98.890 Other specified postprocedural states (principal); C34.90 Malignant neoplasm of unspecified part of unspecified bronchus or lung ==

== ENCOUNTER 2016-07-12 07:02 | Day surgery (SDC) | payer OTHER ==
--- NOTE | 2016-07-11 16:47 | GHP ---
[f rep st] PREOP HISTORY AND PHYSICAL REASON FOR ADMISSION: Left upper lobe lung cancer. HISTORY OF PRESENT ILLNESS: The patient is a 61-year-old man, who was taken to the operating room o n 06/03/2016, for VATS, left upper lobectomy, and mediastinoscopy. 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 He will require a port for chemotherapy. PAST MEDICAL HISTORY: Alcoholism, chronic back pain, hypertension, lung cancer, spontaneous pneumot horax. PAST SURGICAL HISTORY: VATS as above, hydrocelectomy, tonsillectomy. ALLERGIES: No known drug allergies. SOCIAL HISTORY: He is . He is a former smoker. He is a recovering alcoholic. FAMILY HISTORY: Heart disease, hypertension. REVIEW OF SYSTEMS: 10-point review of systems negative aside from HPI. PHYSICAL EXAMINATION: GENERAL: Well-developed, well-nourished man, in no acute distress. HEENT: Normocephalic, atraumatic. No hearing deficits. Pupils equal and round. No scleral icterus. Muco us membranes moist. Voice is hoarse. NECK: Trachea midline. RESPIRATORY: Clear to auscultation bilaterally. No increased work of breathing. CARDIOVASCULAR: Regular rate and rhythm. MUSCULOSKE LETAL: Normal gait. Normal nails. SKIN: Warm and dry. PSYCH: Mood and affect normal. IMPRESSION AND PLAN: The patient is a 61-year-old man with a left upper lobe lung cancer. He will require a port for chemotherapy. We discussed the benefits of port placement including easier acces s for chemotherapy. We discussed risks, including but not limited to, stroke, heart attack, blood c lots, , infection, bleeding, or pneumothorax. He understands that if the port becomes infected , it will need to be removed. He understands the risks and would like to proceed. The patient was additionally seen by Dr. Kadie Pearce, who agreed with the above impression and plan. /[id number]/MODL
[2016-07-12] MEDS ORDERED: BUPIVACAINE 0.5% 30 ML SDV ONE (07:45)
[2016-07-12] MEDS ORDERED: ceFAZolin 2 GM/DEXTROSE 100 ML IV ONE (08:00)
[2016-07-12] MEDS ORDERED: MIDAZOLAM 2 MG/2 ML VIAL ONE (08:48)
[2016-07-12] MEDS ORDERED: PROPOFOL 200 MG/20 ML VIAL ONE ×2 (08:54)
[2016-07-12] MEDS ORDERED: fentaNYL 100 MCG/2 ML INJ ONE (08:55)
--- NOTE | 2016-07-12 10:19 | GOP ---
[f rep st] OPERATIVE REPORT DATE OF OPERATION: 07/12/2016 SURGEON: Kadie Pearce MD ANESTHESIA: General. ANESTHESIOLOGIST: Dr. Omar Longoria. PREOPERATIVE DIAGNOSIS: Left lung cancer. POSTOPERATIVE DIAGNOSIS: Left lung cancer. PROCEDURE PERFORMED: Right ultrasound-guided internal jugular PowerPort placement. FINDINGS: Tip in SVC. SPECIMENS: None. ESTIMATED BLOOD LOSS: 20 mL. INDICATIONS: The patient is a 61-year-old who has lung cancer. I recently performed mediastinoscop y and lobectomy on him. He will require a port for chemotherapy. DESCRIPTION OF PROCEDURE: The patient was brought into the operating room, placed supine on the tab le, and general anesthesia was administered. His bilateral neck and chest were prepped and draped i n the usual sterile fashion. I infiltrated all sites with 0.5% Marcaine prior to making incisions. I tried to access the subclavian vein, but was unsuccessful. Then, under ultrasound guidance, I moved to the right internal jugular vein. I accessed it under ul trasound guidance on the first attempt with direct return of blood flow. I threaded the guidewire a nd removed the needle. Placement was confirmed with fluoroscopy. I made a pocket to accommodate the port in the left chest. I tunneled this up to the insertion site . Using the Seldinger technique, I placed a dilator and sheath over the wire. I removed the wire a nd the dilator. I threaded the catheter through the sheath and peeled away the sheath. Placement w as confirmed with fluoroscopy. I performed some manipulation to make the curve at the IJ smooth. The port withdrew blood easily an d was flushed with heparin. The pocket was closed with 3-0 Vicryl followed by 4-0 Monocryl. The neck was closed with 4-0 Monocr yl. Dermabond was applied. I then re-accessed the port and place the Ortega needle. A dressing was applied. He was awakened in the operating room, extubated, and transferred to the PACU in stable condition. /[id number]/MODL
[2016-07-12] MEDS ORDERED: HYDROCODONE/APAP 5/325 TAB ONE (10:58)
== END 2016-07-12 11:55 | disposition home or self-care (01) ==
LOC: FSGY 07:02
PROVIDERS: ATTEND Surgery
DX: C34.12 Malignant neoplasm of upper lobe, left bronchus or lung (principal); M54.5 Low back pain; G89.29 Other chronic pain; F10.21 Alcohol dependence, in remission; I10 Essential (primary) hypertension; Z87.891 Personal history of nicotine dependence; Z90.2 Acquired absence of lung [part of]
CPT/HCPCS: C1788; J0690; J1642; J2250; J2704; J3010